=== PATIENT | female | born 1950 | race Caucasian/White ===

== ENCOUNTER 2017-08-26 23:12 | Emergency (ER) | payer SELFPAY ==
[~2017-08-26] VITALS: Ht 137.2 cm; Wt 54.1 kg
[2017-08-26 23:16] VITALS: Ht 137.2 cm; Wt 54.1 kg
[2017-08-27 02:02] VITALS: BP 141/69
== END 2017-08-27 02:02 | disposition home or self-care (01) ==
LOC: ED 23:12
DX: J06.9 Acute upper respiratory infection, unspecified (principal); I10 Essential (primary) hypertension; E11.9 Type 2 diabetes mellitus without complications
CPT/HCPCS: Q0163